=== PATIENT | female | born 1970 | race Caucasian/White ===

== ENCOUNTER 2018-06-22 10:28 | Emergency (ER) | payer OTHER ==
[2018-06-22] MEDS ORDERED: ASPIRIN 300 MG SUPP PR (11:37)
[2018-06-22] MEDS: ASPIRIN 325 MG TAB PO (12:38)
[2018-06-22 12:57] LABS: ADD MAN DIFF? NO
[2018-06-22 12:59] LABS: BASOPHILS % 0.4 % (0.0-2.0); EOSINOPHILS # 0.1 10^3/ul (0.0-0.5); EOSINOPHILS % 1.3 % (0.0-7.0); HEMATOCRIT 42.4 % (37.0-47.0); HEMOGLOBIN 14.1 g/dl (12.0-16.0); LYMPHOCYTES # 1.6 10^3/ul (0.8-2.9); LYMPHOCYTES % 29.2 % (15.0-51.0); MEAN CORPUSCULAR HEMOGLOBIN 27.5 pg (29.0-33.0); MEAN CORPUSCULAR HGB CONC 33.3 g/dl (32.0-37.0); MEAN CORPUSCULAR VOLUME 82.8 fl (82.0-101.0); MEAN PLATELET VOLUME 10.7 fl (7.4-10.4); MONOCYTE # 0.5 10^3/ul (0.3-0.9); MONOCYTES % 8.3 % (0.0-11.0); NEUTROPHIL # 3.3 10^3/ul (1.6-7.5); NEUTROPHILS % 60.6 % (39.0-77.0); PLATELET COUNT 209 10^3/UL (140-415); RED BLOOD COUNT 5.12 10^6/ul (4.20-5.40); RED CELL DISTRIBUTION WIDTH 13.5 % (11.5-14.5)
[2018-06-22 12:59] LABS: WHITE BLOOD COUNT 5.4 10^3/ul (4.8-10.8)
[2018-06-22 13:05] LABS: ANION GAP 6 (5-13); BLOOD UREA NITROGEN 13 mg/dl (7-20); CALCIUM 9.4 mg/dl (8.4-10.2); CARBON DIOXIDE 30 mmol/L (21-31); CHLORIDE 105 mmol/L (97-110); CREATININE 0.68 mg/dl (0.44-1.00); Estimated GFR > 60 mL/min (>60); GLUCOSE 91 mg/dl (70-220); POTASSIUM 4.1 mmol/L (3.5-5.1); SODIUM 141 mmol/L (135-144)
[2018-06-22 13:16] LABS: TROPONIN-I < 0.012 ng/ml (0.000-0.120)
[2018-06-22 13:17] LABS: D-DIMER 306.73 ng/ml (<460)
[2018-06-22 15:20] LABS: TROPONIN-I < 0.012 ng/ml (0.000-0.120)
== END 2018-06-22 15:50 | disposition home or self-care (01) ==
LOC: E/R 10:28
DX: R07.9 Chest pain, unspecified (principal)
CPT/HCPCS: 36415; 71045; 80048; 81025; 84443; 84484; 85025; 85378; 93005; 99285-25